=== PATIENT | male | born 1950 | race Caucasian/White ===

== ENCOUNTER 2020-11-05 13:40 | Outpatient (CLI) | payer OTHER, SELFPAY ==
--- NOTE | 2020-11-05 13:49 | CT_ITS ---
WS: [id number] CT CERVICAL SPINE TECHNIQUE: Noncontrast CT of the cervical spine with coronal and sagittal reformatted images. CLINICAL INFORMATION: NECK PAIN COMPARISON: None. DLP: 1630.[address] scans at [facility] use at least one of these dose optimization techniques: automated e xposure control; mA and/or kV adjustment per patient size (includes targeted exams where dose is matc hed to clinical indication); or iterative reconstruction. FINDINGS: Mild cervical curve convex left. Moderate spondylitic changes. Straightening of the normal cervical l ordosis. Slight retrolisthesis C4 on C5. Disc space narrowing worse at C4-C5 C5-C6 and C6-C7 with sub chondral cystic change. Normal C1-2 articulation. C2-C3: Normal. C3-C4: Disc osteophyte complex endplate ridging. Moderate to severe right and no significant left for aminal narrowing. Shallow central protrusion with mild central canal stenosis. Slight indentation on the cervical cord. Moderate facet arthropathy. C4-C5: Disc osteophyte complex with endplate ridging. Moderate to severe left and moderate right bony foraminal narrowing. Moderate facet arthropathy. Mild to moderate central canal stenosis. C5-C6: Disc osteophyte complex with endplate ridging. Mild central canal stenosis. Mild left and no s ignificant right foraminal narrowing. Moderate facet arthropathy. C6-C7: Disc osteophyte complex with endplate ridging. Mild left and no significant right foraminal na rrowing. Spinal canal is patent. Moderate facet arthropathy C7-T1: Mild osteophytic ridging. Spinal canal and foramen are patent. Fibrosis in the lung apices. Mastoid air cells are well aerated.. Visualized posterior nasopharynx: Normal. Prevertebral soft tissues: Normal. CT/CT cervical spin wo con* [id number] IMPRESSION: 1. Moderate spondylitic changes with straightening of the normal cervical lord osis. 2. Disc space narrowing worse at C4-C5, C5-C6 and C6-C7. 3. Mild central canal stenosis C3-C4 C4-C5 and C5-C6. 4. Moderate to severe bony foraminal narrowing worse at right C3-4, left C4-5, left C5-6. 5. Asymmetric facet arthropathy worse at right C3-4.
== END 2020-11-05 13:41 | disposition home or self-care (01) ==
PROVIDERS: PCP Emergency Medicine Emergency Medical Services; Visit Provider Emergency Medicine Emergency Medical Services
DX: M47.812 Spondylosis without myelopathy or radiculopathy, cervical region (principal); M48.02 Spinal stenosis, cervical region
CPT/HCPCS: 72125

== ENCOUNTER 2024-09-28 11:20 | Emergency (ER) | payer OTHER, SELFPAY ==
--- OUTSIDE RECORDS SUMMARY | 2023-11-09 05:00 | XMS_ITS ---
Author Organization [facility] Address [address] [place] [address] Care Team Providers Care Dental Sales Representative Name Role Phone [facility] Venancio ARGUELLES Primary Care Provider Un available Acklin, Zee Unavailable [phone] [place], [place] Unavailable Unavailable Ulysses Geein Unavailable [phone] REASON FOR VISIT Ulcerative Colitis Encounters Encounter Location Date Provider Diagnosis [facility] [address] [place] [address] 11/09/2023 Luda Gee Plan Of Treatment No Information Progress Notes * VALERIEKvngDOB:1950 (74 yo M)Acc No.[id number]:11/09/2023 Progress Notes Patient: Kvng Garcia Provider: Artur Gee MD :1950 A ge:73 Y S ex:Male Date:11/09/2023 Address:[address] [place] [address] [id number] Pcp:Venancio Christensen DO Subjective: * Chief Complaints: * U lcerative Colitis Billing Information: * Procedure Codes: * Electronic signature of Suzanne Gee MD on 09/28/2024 at 11:26 AM CDT Sign off status: Pending * Provider: Artur Gee MD Date: 11/09/2023 Generated for Printi ng/Faxing/eTransmitting on: 0 09/28/2024 11:26 AM CDT
--- OUTSIDE RECORDS SUMMARY | 2024-09-28 05:15 | XMS_ITS | Encounter Summary ---
Author Name [facility] Address [address] [place] [address] Care Team Providers Care Administrative Technician Name Role Phone YG BARRERA Primary Care Provider Unavailabl e JHON TRAYLOR Primary Care Provider Unavailabl e Insurance Providers: All historical and current Section Date Range: From patient's date of to the date document was created. This section includes the names of all active insurance providers for the patient. Insurance Provider Type of Coverage Plan Name Start of Policy Coverage End of Policy Coverage Group Number Member ID Insurance Provider's Telephone Number Policy Ivory's Name Patient's Relationship to Policy Ivory MEDICARE (WNR) MEDICARE (M) PART A May 06, 2011 PART A [id number] [phone] Aminata PADILLA PATIENT MEDICARE (WNR) MEDICARE (M) PART A May 06, 2011 PART A [id number] [phone] Aminata PADILLA PATIENT MEDICARE (WNR) MEDICARE (M) PART A May 06, 2011 PART A [id number] Aminata PADILLA PATIENT MEDICARE (WNR) MEDICARE (M) PART A May 06, 2011 PART A [id number] Aminata PADILLA PATIENT Selected Encounter This section includes the information on record at [place] for the Encounter. Date/Time Encounter Type Encounter Description Reason Provider Source Sep 28, 2024 10:15 AM OFF/OP EST MAY X REQ PHY/QHP PRIMARY CARE/MEDICINE ICD-10-CM M25.532 Pain in left wrist HOLLY TAPIA IHKaterina Encounter Template Text not used by [place] Assessments - Encounter Diagnoses This section includes the primary and secondary diagnoses documented for the Encounter. Date/Time Primary/Secondary Diagnosis Diagnosis Name Provider Source Sep 28, 2024 11:17 AM PRIMARY Pain in left wrist HOLLY TAPIA [facility] Plan of Treatment: Future Appointments (+ 6 months) and Future Tests (+/- 45 days) The Plan of Treatment section includes future care activities for the patient from all [place] treatmentfacilities. This section includes future appointments and future orders which are active, pending or scheduled. Active, Pending, and Scheduled Orders This section includes a listing of several types of active, pending, and scheduled orders, including clinic medications orders, diagnostic test orders, procedure orders and consult orders; where the start date of the order is 45 days before the date of the Encounter or 45 days after the date of theEncounter. The data comes from all [place] treatment facilities. Test Date/Time Test Type Test Details Facility Name Sep 28, 2024 12:00 AM Imaging - General Radiology Order WRIST,LEFT, 3 OR MORE VIEWS [facility] Sep 28, 2024 10:37 AM Laboratory - Chemi stry Order URIC ACID GREEN LI/HEP BLD/PLAS PLASMA SP [facility] Vital Signs: All taken on the encounter date This section contains inpatient and outpatient Vital Signs collected on the date of the Encounter. Date/Time Temperature Pulse Blood Pressure Respiratory Rate SP02 Pain Height Weight Body Mass Index Source Sep 28, 2024 10:40 AM 98 F 63 /min 137/96 mm[Hg] 18 /min 97 % 179.2 lb 23 [facility] Social History: Smoking Status (Most current) and Tobacco Use (All prior to encounter date) This section includes the most current, and the historical, smoking and tobacco- related health factors from the [place] facility where the Encounter took place. Current Smoking Status This section includes the most current smoking, or tobacco-related health factor, from the [place] facility where the Encounter took place. Date/Time Current Smoking Status Comment Facil ity July 18, 2023 02:00 PM VA-TOBACCO USER SOME DAYS [facility] Tobacco Use History This section includes a history of the smoking, or tobacco-related health factors, that were collected on or before the date of the Encounter. The data comes from the [place] facility where the Encounter took place. Date/Time Smoking Status/Tobacco Use Comment F acility July 18, 2023 02:00 PM VA-TOBACCO USE 30 YEARS OR MORE [facility]COURT [facility] July 18, 2023 02:00 PM VA-TOBACCO USE ADVICE [facility] July 18, 2023 02:00 PM VA-TOBACCO USE NEONATAL INTENSIVE CARE NURSE NO [facility] July 18, 2023 02:00 PM VA-TOBACCO USE MED NO [facility] July 18, 2023 02:00 PM VA-TOBACCO USER SOME DAYS [facility] Sep 12, 2018 09:07 AM VA-TOBACCO DOESNT USE WI 30 MIN WAKEUP [facility]RT [facility] Sep 12, 2018 09:07 AM VA-TOBACCO USE 30 YEARS OR MORE [facility]RT [facility] Sep 12, 2018 09:07 AM VA-TOBACCO USE ADVICE [facility] Sep 12, 2018 09:07 AM VA-TOBACCO USE NEONATAL INTENSIVE CARE NURSE NO [facility] Sep 12, 2018 09:07 AM VA-TOBACCO USE MED NO [facility] Sep 12, 2018 09:07 AM VA-TOBACCO USER EVERY DAY [facility] Apr 13, 2012 01:30 PM TOBACCO MEDS OFFER ED BUT DECLINED [facility] Apr 13, 2012 01:30 PM TOBACCO OFFERED PT MEDS (PROVIDER) [facility] Apr 13, 2012 01:[address] OP SMOKING CLINIC [facility] Mar 13, 2012 02:16 PM CURRENT TOBACCO USER [facility] Mar 13, 2012 02:[address] OP SMOKING CLINIC [facility] Jun 29, 2010 09:08 AM CURRENT TOBACCO USER [facility] Jun 29, 2010 09:08 AM TOBACCO MEDS OFFER ED BUT DECLINED [facility] Jun 29, 2010 09:08 AM TOBACCO OFFERED PT MEDS (PROVIDER) declined [facility] Jun 29, 2010 09:[address] OP SMOKING CLINIC declined [facility] Jun 03, 2009 10:39 AM CURRENT TOBACCO USER [facility] Jun 03, 2009 10:[address] OP SMOKING CLINIC [facility] Apr 17, 2009 10:51 AM TOBACCO OFFERED PT MEDS (PROVIDER) [facility] Apr 17, 2009 10:[address] OP SMOKING CLINIC [facility] Apr 17, 2009 10:51 AM TOBACCO OFFERRED P T MEDS (PROVIDER) [facility] Apr 17, 2009 10:51 AM TOBACCO OFFERRED S TOP SMOKING CLINIC [facility] 2007 02:59 PM CURRENT TOBACCO USER [facility] 2007 02:59 PM TOBACCO MEDS OFFER ED BUT DECLINED [facility] 2007 02:[address] OP SMOKING CLINIC [facility] Mar 15, 2005 09:51 AM CURRENT TOBACCO USER [facility] Sep 04, 2004 08:55 AM CURRENT NON-TOBACC O USER-HX OF USE [facility] Oct 01, 2002 03:26 PM CURRENT TOBACCO USER [facility] Apr 16, 2002 04:03 PM CURRENT TOBACCO USER [facility] Oct 30, 2001 04:27 PM CURRENT TOBACCO USER [facility] Nov 21, 2000 02:54 PM CURRENT TOBACCO USER [facility] Nov 02, 2000 04:23 PM CURRENT TOBACCO USER [facility] Advance Directives: All historical and current Section Date Range: From patient's date of to the date document was created. This section includes ALL of a patient's completed or amended [place] Advance and Rescinded Directives. The entries below indicate that a directive exists for the patient, but an actual copy is not included with this document. The data comes from all [place] facilities. Date Advance Directives Provider Source Jun 18, 2010 ADVANCE DIRECTIVE DISCUSSION JAIR MORRIS [facility] Encounter Notes: All associated encounter notes This section contains the clinical notes associated to the Encounter. Date/Time Encounter Note(s) Provider Source Sep 28, 2024 10:41 AM NURSING PROGRESS N OTE: LOCAL TITLE: NURSING NOTE PB STANDARD TITLE: NURSING PROGRESS NOTE DATE OF NOTE: SEP 28, 2024@10:41 ENTRY DATE: SEP 28, 2024@10:41:04 AUTHOR: ANNETTE TAPIA COSIGNER: URGENCY: STATUS: COMPLETED This is a 74 year old MALE with known Allergies as noted: SALSALATE, AMOXIL, FLEXERIL C/C: Left wrist pain and swelling S: Williamson stated that on Tuesday he was moving boxes and felt a pop in his left wrist and then the pain and swelling occurred. stated that he has not been treating the pain or swelling with anything. On the following Active Medications: Active Outpatient Medications (including Supplies): Active Non-VA Medications Status === 1) Non-VA NIACIN (SLO-NIACIN) 500MG TAB,SA 500MG BY MOUTH AT ACTIVE BEDTIME O: Williamson ambulated into the clinic without assistance. Steady gait. Alert and oriented x4. Unlabored breathing. Left wrist and left hand edema noted and warmth noted. A/P: Reviewed with Provider. Provider order a left Xray and a uric acid. Provider reviewed Xray and recommended for Williamson to report to the ER for further evaluation and treatment. voiced understanding and agreed to plan of care. Williamson refused EMS. advised he will drive to [facility]. ER contact and report given to ROQUE sAtorga at [facility]. escorted to the lobby in stable condition. ED consult placed and held for signature. RTC: as needed /matt/ Annette Tapia RN [facility], JAminataP [facility] Signed: 09/28/2024 11:15 Receipt Acknowledged By: * AWAITING SIGNATURE * AKILAH CURTIS III, JEANNIE RENEE [facility]
--- OUTSIDE RECORDS SUMMARY | 2024-09-28 06:25 | XMS_ITS | Continuity of Care Document ---
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 It does not include entries that were removed or entered in error. 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 [facility] Cervical radiculopathy Active Condition [place] [facility] Cervicalgia Active Condition [facility] Chronic hepatitis C Active Condition [facility] [place] [facility] Chronic Low Back Pain (ICD-9-CM 724.2) Active Condition [place] [facility] Chronic tension-type headache (SNOMED CT 417372046) Active Condition [facility] Depressive Disorder NOS * (ICD-9-CM 311./300.4) Active Condition [place] [facility] Diverticular disease [facility] Elevated Liver Function Tests Active Condition [facility] Exposure to potentially hazardous chemical Active Condition [place] [facility] Exposure to potentially hazardous substance ([facility] 134843777382243) Active Condition July Entered By: ANA DENNIS Comment: Entered automatically through MARIANO Problem List documentation program [facility] Hepatitis C * (ICD-9-CM 070.51) Active Condition [place] [facility] Hyperlipidemia (SNOMED CT 58666804) Active Condition [facility] Hypertension (SNOMED CT 78186080) Active Condition [facility] Hypertriglyceridemia Active Condition [place] [facility] Migraine, unspecified, without mention of Intractable Migraine without mention o Active Condition [place] [facility] Opioid Dependence Active Condition [place] [facility] Osteoarthritis * (ICD-9-CM 715.90) Active Condition [place] [facility] Overweight Active Condition [facility] Shoulder pain Active Condition [facility] Tobacco user Active Condition [facility] Ulcerative Colitis ([facility] 10013354) Active Condition [place] [facility] Unspecified gastritis and gastroduodenitis, without mention of hemorrhage (ICD-9 Active Condition [place] [facility] ABDOM PAIN, L L QUADR Inactive Condition 10/02/2018 [place] [facility] Contact with or Exposure to other Viral Diseases (ICD-9-CM V01.7) Inactive Condition 07/19/2023 [place] [facility] Diarrhea * (ICD-9-CM 787.91) Inactive Condition 10/04/2018 [place] [facility] Diarrhea of presumed infectious origin (ICD-9-CM 009.3) Inactive Condition 10/04/2018 [place] [facility] DIZZINESS AND GIDDINESS Inactive Condition 07/19/2023 [place] [facility] Laboratory Examination Ordered as part of a Routine General Medical Examination Inactive Condition 10/02/2018 [facility] Laboratory Examination, unspecified (ICD-9-CM V72.60) Inactive Condition 10/02/2018 [facility] Muscle weakness Inactive Condition 09/05/2017 [place] [facility] Myalgia and myositis (ICD-9-CM 729.1) Inactive Condition 07/19/2023 [place] [facility] Numbness of hand (SNOMED CT 739222959) Inactive Condition 10/02/2018 [facility] Other Malaise and Fatigue (ICD-9-CM 780.79) Inactive Condition 07/19/2023 [place] [facility] Pain of right shoulder joint Inactive Condition 09/05/2017 [facility] Routine General Medical Examination at a Health Care Facility * Inactive Condition 10/02/2018 [facility] Screening for Lipoid disorders Inactive Condition 10/02/2018 [facility] Screening for Malignant Neoplasm of the Prostate Inactive Condition 10/02/2018 [facility] Screening for Thyroid Disorders Inactive Condition 10/02/2018 [facility] Tick-borne fever (ICD-9-CM 066.1) Inactive Condition 07/19/2023 [place] [facility] Tobacco Use Disorder, Continuous (ICD-9-CM 305.1) Inactive Condition 07/19/2023 [place] [facility] VACCIN FOR INFLUENZA Inactive Condition 10/02/2018 [place] [facility] Diagnosis: ICD-10-CM M25.532 Pain in left wrist Active Diagnosis [facility] Diagnosis: ICD-10-CM K51.90 Ulcerative colitis, unspecified, without complications Active Diagnosis [facility] Medications Combined list of outpatient medications from Department [facility] and [facility] facilities.Medications provided include 1) outpatient medications from the last 15 months, and 2) patient-reported medications. Medication Details Route Status Patient Instructions Prescription Expires Prescription Number Last Dispense Date Ordering Provider Order Date Order Qty Source AMLODIPINE BESYLATE 10MG TAB TAKE ONE TABLET BY MOUTH ONCE A DAY FOR HIGH BLOOD PRESSURE ORAL 07/18/2024 [id number] 5 LEVAR RODRIGUEZ 2023 90 [facility] METOPROLOL TARTRATE 100MG TAB TAKE ONE TABLET BY MOUTH TWICE A DAY FOR HIGH BLOOD PRESSURE TAKE WITH OR IMMEDIAT STEFANIE FOLLOWIN G FOOD. ORAL 07/18/2024 [id number] 5 LEVAR RODRIGUEZ 2023 180 [facility] NIACIN (SLO-NIACIN ) 500MG TAB,SA TAKE ONE TABLET BY MOUTH AT BEDTIME ORAL ACTIVE MICHEL SUAREZ 2020 [facility] Allergies, Adverse Reactions, Alerts Combined list of allergies from [facility] and [facility] facilities. It does not include entries that were removed or entered in error. Substance Category Reaction Severity Reaction type Status Date Reported Comments Source AMOXIL Propensity to adverse reactions to drug (finding) Nausea and vomiting active 0 [facility] FLEXERIL Propensity to adverse reactions to drug (finding) Chest pain active 1 [facility] SALSALATE Propensity to adverse reactions to drug (finding) Finding of vomiting active 3 [facility] Immunizations Combined list of available immunizations from the Department of [facility] and [facility] facilities. Immunization Series Date Given Administered By Site Reaction Lot Number CVX Code Drug Celebrity Manager Status Comments Source TDAP (HISTORICAL) 2011 115 complet ed [facility], VISN 15 INFLUENZA, UNSPECIFIED FORMULATION 2007 88 complet ed [facility] HEP A-HEP B 2006 PLACIDO COUGHLIN 104 complet ed [facility] INFLUENZA (HISTORICAL) 2003 88 complet ed [facility] Results Combined list of recent chemistry, hematology and other laboratory results from Department of Defense and [facility] Affairs, ranging from 15 months to all on record, depending upon the facility. Order Name Results Value Reference Range Date Interpretation Specimen Comments Source VITAMIN D, 25-HYDROXY 25-HYDROXYV ITAMIN D3 [MASS/VOLUM E] IN SERUM OR PLASMA 21.7 ng/mL 30 - 96 07/17 L Specimen Type: SERUM No comment entered. Ordering Provider: LEVAR RODRIGUEZ Report Released Date/Time : July 15, 2023 04:13 PM Reporting Lab: [place] [facility] [address] [place] [address] Performin g Lab: [place] [facility] [address] [place] [address] [facility] TSH (MA-PB) THYROTROPIN [UNITS/VOLU ME] IN SERUM OR PLASMA 2.045 u[IU]/mL 0.47 - 5 07/17 Specimen Type: SERUM No comment entered. Ordering Provider: LEVAR RODRIGUEZ Report Released Date/Time : July 15, 2023 04:13 PM Reporting Lab: [place] [facility] [address] [place] [address] Performin g Lab: [place] [facility] [address] [place] [address] [facility] HGA1C HEMOGLOBIN A1C/HEMOGLO BIN.TOTAL IN BLOOD 6.0 4.0 - 6.0 07/17 Specimen Type: BLOOD No comment entered. Ordering Provider: LEVAR RODRIGUEZ Report Released Date/Time : July 15, 2023 04:13 PM Reporting Lab: [place] [facility] [address] [place] [address] Performin g Lab: [place] [facility] [address] [place] [address] [facility] CHOLESTERO L PANEL (PB) CHOLESTEROL [MASS/VOLUM E] IN SERUM OR PLASMA 202 mg/dL 0 - 200 07/17 H Specimen Type: PLASMA No comment entered. Ordering Provider: LEVAR RODRIGUEZ Report Released Date/Time : July 15, 2023 04:13 PM Reporting Lab: [place] [facility] [address] [place] [address] Performin g Lab: [place] [facility] [address] [place] [address] [facility] CHOLESTERO L PANEL (PB) TRIGLYCERID E [MASS/VOLUM E] IN SERUM OR PLASMA 152 mg/dL 0 - 150 07/17 H Specimen Type: PLASMA No comment entered. Ordering Provider: LEVAR RODRIGUEZ Report Released Date/Time : July 15, 2023 04:13 PM Reporting Lab: [place] [facility] [address] [place] [address] Performin g Lab: [place] [facility] [address] [place] [address] [facility] CHOLESTERO L PANEL (PB) CHOLESTEROL IN LDL [MASS/VOLUM E] IN SERUM OR PLASMA BY CALCULATION 132.1 mg/dL 07/17 Specimen Type: PLASMA No comment entered. Ordering Provider: LEVAR RODRIGUEZ Report Released Date/Time : July 15, 2023 04:13 PM Reporting Lab: [place] [facility] [address] [place] [address] Performin g Lab: [place] [facility] [address] [place] [address] [facility] CHOLESTERO L PANEL (PB) CHOLESTEROL IN HDL [MASS/VOLUM E] IN SERUM OR PLASMA 39.5 mg/dL 40 07/17 L Specimen Type: PLASMA No comment entered. Ordering Provider: LEVAR RODRIGUEZ Report Released Date/Time : July 15, 2023 04:13 PM Reporting Lab: [place] [facility] [address] [place] [address] Performin g Lab: [place] [facility] [address] [place] [address] [place] [place] [facility] CHOLESTERO L PANEL (PB) CHOLESTEROL IN HDL/CHOLEST TO.TOTAL [MASS RATIO] IN SERUM OR PLASMA 19.6 25 07/17 Specimen Type: PLASMA No comment entered. Ordering Provider: LEVAR RODRIGUEZ Report Released Date/Time : July 15, 2023 04:13 PM Reporting Lab: [place] [facility] [address] [place] [address] Performin g Lab: [place] [facility] [address] [place] [address] [facility] COMPREHENS ANSHU METABOLIC PANEL CREATININE [MASS/VOLUM E] IN SERUM OR PLASMA 1.25 mg/dL 0.7 - 1.3 07/17 Specimen Type: PLASMA No comment entered. Ordering Provider: LEVAR RODRIGUEZ Report Released Date/Time : July 15, 2023 04:13 PM Reporting Lab: [place] [facility] [address] [place] [address] Performin g Lab: [place] [facility] [address] [place] [address] [facility] COMPREHENS ANSHU METABOLIC PANEL UREA NITROGEN [MASS/VOLUM E] IN SERUM OR PLASMA 23 mg/dL 9 - 25 07/17 Specimen Type: PLASMA No comment entered. Ordering Provider: LEVAR RODRIGUEZ Report Released Date/Time : July 15, 2023 04:13 PM Reporting Lab: [place] [facility] [address] [place] [address] Performin g Lab: [place] [facility] [address] [place] [address] [facility] COMPREHENS ANSHU METABOLIC PANEL GLUCOSE [MASS/VOLUM E] IN SERUM OR PLASMA 118 mg/dL 72 - 99 07/17 H Specimen Type: PLASMA No comment entered. Ordering Provider: LEVAR RODRIGUEZ Report Released Date/Time : July 15, 2023 04:13 PM Reporting Lab: [place] [facility] [address] [place] [address] Performin g Lab: [place] [facility] [address] [place] [address] [facility] COMPREHENS ANSHU METABOLIC PANEL SODIUM [MOLES/VOLU ME] IN SERUM OR PLASMA 136 meq/L 136 - 145 07/17 Specimen Type: PLASMA No comment entered. Ordering Provider: LEVAR RODRIGUEZ Report Released Date/Time : July 15, 2023 04:13 PM Reporting Lab: [place] [facility] [address] [place] [address] Performin g Lab: [place] [facility] [address] [place] [address] [facility] COMPREHENS ANSHU METABOLIC PANEL POTASSIUM [MOLES/VOLU ME] IN SERUM OR PLASMA 5.0 meq/L 3.5 - 5 07/17 Specimen Type: PLASMA No comment entered. Ordering Provider: LEVAR RODRIGUEZ Report Released Date/Time : July 15, 2023 04:13 PM Reporting Lab: [place] [facility] [address] [place] [address] Performin g Lab: [place] [facility] [address] [place] [address] [facility] COMPREHENS ANSHU METABOLIC PANEL CHLORIDE [MOLES/VOLU ME] IN SERUM OR PLASMA 102 meq/L 98 - 107 07/17 Specimen Type: PLASMA No comment entered. Ordering Provider: LEVAR RODRIGUEZ Report Released Date/Time : July 15, 2023 04:13 PM Reporting Lab: [place] [facility] [address] [place] [address] Performin g Lab: [place] [facility] [address] [place] [address] [facility] COMPREHENS ANSHU METABOLIC PANEL CARBON DIOXIDE, TOTAL [MOLES/VOLU ME] IN SERUM OR PLASMA 26 meq/L 22 - 31 07/17 Specimen Type: PLASMA No comment entered. Ordering Provider: LEVAR RODRIGUEZ Report Released Date/Time : July 15, 2023 04:13 PM Reporting Lab: [place] [facility] [address] [place] [address] Performin g Lab: [place] [facility] [address] [place] [address] [facility] COMPREHENS ANSHU METABOLIC PANEL CALCIUM [MASS/VOLUM E] IN SERUM OR PLASMA 9.3 mg/dL 8.4 - 10.4 07/17 Specimen Type: PLASMA No comment entered. Ordering Provider: LEVAR RODRIGUEZ Report Released Date/Time : July 15, 2023 04:13 PM Reporting Lab: [place] [facility] [address] [place] [address] Performin g Lab: [place] [facility] [address] [place] [address] [facility] COMPREHENS ANSHU METABOLIC PANEL PROTEIN [MASS/VOLUM E] IN SERUM OR PLASMA 8.3 g/dL 6 - 8.6 07/17 Specimen Type: PLASMA No comment entered. Ordering Provider: LEVAR RODRIGUEZ Report Released Date/Time : July 15, 2023 04:13 PM Reporting Lab: [place] [facility] [address] [place] [address] Performin g Lab: [place] [facility] [address] [place] [address] [facility] COMPREHENS ANSHU METABOLIC PANEL ALBUMIN [MASS/VOLUM E] IN SERUM OR PLASMA 4.2 g/dL 3.4 - 5 07/17 Specimen Type: PLASMA No comment entered. Ordering Provider: LEVAR RODRIGUEZ Report Released Date/Time : July 15, 2023 04:13 PM Reporting Lab: [place] [facility] [address] [place] [address] Performin g Lab: [place] [facility] [address] [place] [address] [facility] COMPREHENS ANSHU METABOLIC PANEL BILIRUBIN.T OTAL [MASS/VOLUM E] IN SERUM OR PLASMA 0.3 mg/dL 0.2 - 1.2 07/17 Specimen Type: PLASMA No comment entered. Ordering Provider: LEVAR RODRIGUEZ Report Released Date/Time : July 15, 2023 04:13 PM Reporting Lab: [place] [facility] [address] [place] [address] Performin g Lab: [place] [facility] [address] [place] [address] [facility] COMPREHENS ANSHU METABOLIC PANEL ALKALINE PHOSPHATASE [ENZYMATIC ACTIVITY/VO LUME] IN SERUM OR PLASMA 49 U/L 40 - 150 07/17 Specimen Type: PLASMA No comment entered. Ordering Provider: LEVAR RODRIGUEZ Report Released Date/Time : July 15, 2023 04:13 PM Reporting Lab: [place] [facility] [address] [place] [address] Performin g Lab: [place] [facility] [address] [place] [address] [facility] COMPREHENS ANSHU METABOLIC PANEL ASPARTATE AMINOTRANSF ERASE [ENZYMATIC ACTIVITY/VO LUME] IN SERUM OR PLASMA 36 U/L 5 - 34 07/17 H Specimen Type: PLASMA No comment entered. Ordering Provider: LEVAR RODRIGUEZ Report Released Date/Time : July 15, 2023 04:13 PM Reporting Lab: [place] [facility] [address] [place] [address] Performin g Lab: [place] [facility] [address] [place] [address] [facility] COMPREHENS ANSHU METABOLIC PANEL ALANINE AMINOTRANSF ERASE [ENZYMATIC ACTIVITY/VO LUME] IN SERUM OR PLASMA 34 U/L 8 - 40 07/17 Specimen Type: PLASMA No comment entered. Ordering Provider: LEVAR RODRIGUEZ Report Released Date/Time : July 15, 2023 04:13 PM Reporting Lab: [place] [facility] [address] [place] [address] Performin g Lab: [place] [facility] [address] [place] [address] [facility] COMPREHENS ANSHU METABOLIC PANEL GLOMERULAR FILTRATION RATE/1.73 SQ M.PREDICTED [VOLUME RATE/AREA] IN SERUM, PLASMA OR BLOOD BY CREATININE- BASED FORMULA (CKD-EPI 2020) 61 07/17 Specimen Type: PLASMA No comment entered. Ordering Provider: LEVAR RODRIGUEZ Report Released Date/Time : July 15, 2023 04:13 PM Reporting Lab: [place] [facility] [address] [place] [address] Performin g Lab: [place] [facility] [address] [place] [address] [facility] URINALYSIS (STL-PB) COLOR OF URINE Yellow 07/17 Specimen Type: URINE No comment entered. Ordering Provider: LEVAR RODRIGUEZ Report Released Date/Time : July 15, 2023 04:13 PM Reporting Lab: [place] [facility] [address] [place] [address] Performin g Lab: [place] [facility] [address] [place] [address] [facility] URINALYSIS (STL-PB) BILIRUBIN.T OTAL [PRESENCE] IN URINE BY TEST STRIP NEGATIVEm g/dL 07/17 Specimen Type: URINE No comment entered. Ordering Provider: LEVAR RODRIGUEZ Report Released Date/Time : July 15, 2023 04:13 PM Reporting Lab: [place] [facility] [address] [place] [address] Performin g Lab: [place] [facility] [address] [place] [address] [facility] URINALYSIS (STL-PB) PH OF URINE BY TEST STRIP 6.5 5.0 - 8.0 07/17 Specimen Type: URINE No comment entered. Ordering Provider: LEVAR RODRIGUEZ Report Released Date/Time : July 15, 2023 04:13 PM Reporting Lab: [place] [facility] [address] [place] [address] Performin g Lab: [place] [facility] [address] [place] [address] [facility] URINALYSIS (STL-PB) LEUKOCYTES [#/AREA] IN URINE SEDIMENT BY MICROSCOPY HIGH POWER FIELD 4 /[HPF] 0 - 5 07/17 Specimen Type: URINE No comment entered. Ordering Provider: LEVAR RODRIGUEZ Report Released Date/Time : July 15, 2023 04:13 PM Reporting Lab: [place] [facility] [address] [place] [address] Performin g Lab: [place] [facility] [address] [place] [address] [facility] URINALYSIS (STL-PB) ERYTHROCYTE S [#/VOLUME] IN URINE SEDIMENT BY MICROSCOPY HIGH POWER FIELD 15 /[HPF] 0 - 5 07/17 H Specimen Type: URINE No comment entered. Ordering Provider: LEVAR RODRIGUEZ Report Released Date/Time : July 15, 2023 04:13 PM Reporting Lab: [place] [facility] [address] [place] [address] Performin g Lab: [place] [facility] [address] [place] [address] [facility] URINALYSIS (STL-PB) APPEARANCE OF URINE CLEAR 07/17 Specimen Type: URINE No comment entered. Ordering Provider: LEVAR RODRIGUEZ Report Released Date/Time : July 15, 2023 04:13 PM Reporting Lab: [place] [facility] [address] [place] [address] Performin g Lab: [place] [facility] [address] [place] [address] [facility] URINALYSIS (STL-PB) NITRITE [PRESENCE] IN URINE BY TEST STRIP NEGATIVEm g/dL 07/17 Specimen Type: URINE No comment entered. Ordering Provider: LEVAR RODRIGUEZ Report Released Date/Time : July 15, 2023 04:13 PM Reporting Lab: [place] [facility] [address] [place] [address] Performin g Lab: [place] [facility] [address] [place] [address] [facility] URINALYSIS (STL-PB) MUCUS [PRESENCE] IN URINE SEDIMENT BY LIGHT MICROSCOPY RARE/[LPF ] 07/17 Specimen Type: URINE No comment entered. Ordering Provider: LEVAR RODRIGUEZ Report Released Date/Time : July 15, 2023 04:13 PM Reporting Lab: [place] [facility] [address] [place] [address] Performin g Lab: [place] [facility] [address] [place] [address] [facility] URINALYSIS (STL-PB) CALCIUM OXALATE CRYSTALS [PRESENCE] IN URINE SEDIMENT BY LIGHT MICROSCOPY FEW/[HPF] 07/17 H Specimen Type: URINE No comment entered. Ordering Provider: LEVAR RODRIGUEZ Report Released Date/Time : July 15, 2023 04:13 PM Reporting Lab: [place] [facility] [address] [place] [address] Performin g Lab: [place] [facility] [address] [place] [address] [facility] URINALYSIS (STL-PB) GLUCOSE [MASS/VOLUM E] IN URINE BY TEST STRIP NORMALmg/ dL 07/17 Specimen Type: URINE No comment entered. Ordering Provider: LEVAR RODRIGUEZ Report Released Date/Time : July 15, 2023 04:13 PM Reporting Lab: [place] [facility] [address] [place] [address] Performin g Lab: [place] [facility] [address] [place] [address] [facility] URINALYSIS ([facility]) PROTEIN [MASS/VOLUM E] IN URINE BY TEST STRIP 50 mg/dL - 20 07/17 H Specimen Type: URINE No comment entered. Ordering Provider: LEVAR RODRIGUEZ Report Released Date/Time : July 15, 2023 04:13 PM Reporting Lab: [place] [facility] [address] [place] [address] Performin g Lab: [place] [facility] [address] [place] [address] [facility] URINALYSIS ([facility]) URN.UROBILI NOGEN NORMALmg/ dL 07/17 Specimen Type: URINE No comment entered. Ordering Provider: LEVAR RODRIGUEZ Report Released Date/Time : July 15, 2023 04:13 PM Reporting Lab: [place] [facility] [address] [place] [address] Performin g Lab: [place] [facility] [address] [place] [address] [facility] URINALYSIS ([facility]) HEMOGLOBIN [MASS/VOLUM E] IN URINE BY TEST STRIP 2+mg/dL 07/17 H Specimen Type: URINE No comment entered. Ordering Provider: LEVAR RODRIGUEZ Report Released Date/Time : July 15, 2023 04:13 PM Reporting Lab: [place] [facility] [address] [place] [address] Performin g Lab: [place] [facility] [address] [place] [address] [facility] URINALYSIS (STL-PB) KETONES [MASS/VOLUM E] IN URINE BY TEST STRIP NEGATIVEm g/dL 07/17 Specimen Type: URINE No comment entered. Ordering Provider: LEVAR RODRIGUEZ Report Released Date/Time : July 15, 2023 04:13 PM Reporting Lab: [place] [facility] [address] [place] [address] Performin g Lab: [place] [facility] [address] [place] [address] [facility] URINALYSIS (STL-PB) URN.LEUK.ES T. NEGATIVE 07/17 Specimen Type: URINE No comment entered. Ordering Provider: LEVAR RODRIGUEZ Report Released Date/Time : July 15, 2023 04:13 PM Reporting Lab: [place] [facility] [address] [place] [address] Performin g Lab: [place] [facility] [address] [place] [address] [facility] URINALYSIS (STL-PB) SPECIFIC GRAVITY OF URINE 1.024 1.005 - 1.029 07/17 Specimen Type: URINE No comment entered. Ordering Provider: LEVAR RODRIGUEZ Report Released Date/Time : July 15, 2023 04:13 PM Reporting Lab: [place] [facility] [address] [place] [address] 8 Performin g Lab: [place] [facility] [address] [place] [address] [facility] CBC LEUKOCYTES [#/VOLUME] IN BLOOD BY AUTOMATED COUNT 8.0 10*3/uL 3.6 - 11.2 07/17 Specimen Type: BLOOD No comment entered. Ordering Provider: LEVAR RODRIGUEZ Report Released Date/Time : July 15, 2023 04:13 PM Reporting Lab: [place] [facility] [address] [place] [address] 8 Performin g Lab: [place] [facility] [address] [place] [address] [facility] CBC ERYTHROCYTE S [#/VOLUME] IN BLOOD BY AUTOMATED COUNT 4.87 10*6/uL 4.10 - 5.70 07/17 Specimen Type: BLOOD No comment entered. Ordering Provider: LEVAR RODRIGUEZ Report Released Date/Time : July 15, 2023 04:13 PM Reporting Lab: [place] [facility] [address] [place] [address] Performin g Lab: [place] [facility] [address] [place] [address] [facility] CBC HEMOGLOBIN [MASS/VOLUM E] IN BLOOD 16.3 g/dL 13.1 - 16.8 07/17 Specimen Type: BLOOD No comment entered. Ordering Provider: LEVAR RODRIGUEZ Report Released Date/Time : July 15, 2023 04:13 PM Reporting Lab: [place] [facility] [address] [place] [address] 8 Performin g Lab: [place] [facility] [address] [place] [address] [facility] CBC HEMATOCRIT [VOLUME FRACTION] OF BLOOD 47.5 38.2 - 48.4 07/17 Specimen Type: BLOOD No comment entered. Ordering Provider: LEVAR RODRIGUEZ Report Released Date/Time : July 15, 2023 04:13 PM Reporting Lab: [place] [facility] [address] [place] [address] Performin g Lab: [place] [facility] [address] [place] [address] [facility] CBC MCV [ENTITIC VOLUME] BY AUTOMATED COUNT 97.5 fL 80.0 - 100.0 07/17 Specimen Type: BLOOD No comment entered. Ordering Provider: LEVAR RODRIGUEZ Report Released Date/Time : July 15, 2023 04:13 PM Reporting Lab: [place] [facility] [address] [place] [address] Performin g Lab: [place] [facility] [address] [place] [address] [facility] CBC MCH [ENTITIC MASS] BY AUTOMATED COUNT 33.5 pg 27.0 - 34.0 07/17 Specimen Type: BLOOD No comment entered. Ordering Provider: LEVAR RODRIGUEZ Report Released Date/Time : July 15, 2023 04:13 PM Reporting Lab: [place] [facility] [address] [place] [address] Performin g Lab: [place] [facility] [address] [place] [address] [facility] CBC MCHC [MASS/VOLUM E] BY AUTOMATED COUNT 34.3 g/dL 33.0 - 36.0 07/17 Specimen Type: BLOOD No comment entered. Ordering Provider: LEVAR RODRIGUEZ Report Released Date/Time : July 15, 2023 04:13 PM Reporting Lab: [place] [facility] [address] [place] [address] Performin g Lab: [place] [facility] [address] [place] [address] [facility] CBC PLATELETS [#/VOLUME] IN BLOOD BY AUTOMATED COUNT 208 10*3/uL 150 - 400 07/17 Specimen Type: BLOOD No comment entered. Ordering Provider: LEVAR RODRIGUEZ Report Released Date/Time : July 15, 2023 04:13 PM Reporting Lab: [place] [facility] [address] [place] [address] Performin g Lab: [place] [facility] [address] [place] [address] [facility] CBC PLATELET MEAN VOLUME [ENTITIC VOLUME] IN BLOOD BY AUTOMATED COUNT 10.5 fL 7.5 - 11.2 07/17 Specimen Type: BLOOD No comment entered. Ordering Provider: LEVAR RODRIGUEZ Report Released Date/Time : July 15, 2023 04:13 PM Reporting Lab: [place] [facility] [address] [place] [address] Performin g Lab: [place] [facility] [address] [place] [address] [facility] CBC ERYTHROCYTE DISTRIBUTIO N WIDTH [RATIO] BY AUTOMATED COUNT 13.4 11.8 - 15.1 07/17 Specimen Type: BLOOD No comment entered. Ordering Provider: LEVAR RODRIGUEZ Report Released Date/Time : July 15, 2023 04:13 PM Reporting Lab: [place] [facility] [address] [place] [address] Performin g Lab: [place] [facility] [address] [place] [address] [facility] CBC LYMPHOCYTES /100 LEUKOCYTES IN BLOOD BY AUTOMATED COUNT 24.3 07/17 Specimen Type: BLOOD No comment entered. Ordering Provider: LEVAR RODRIGUEZ Report Released Date/Time : July 15, 2023 04:13 PM Reporting Lab: [place] [facility] [address] [place] [address] Performin g Lab: [place] [facility] [address] [place] [address] [facility] CBC MONOCYTES/1 00 LEUKOCYTES IN BLOOD BY AUTOMATED COUNT 6.8 07/17 Specimen Type: BLOOD No comment entered. Ordering Provider: LEVAR RODRIGUEZ Report Released Date/Time : July 15, 2023 04:13 PM Reporting Lab: [place] [facility] [address] [place] [address] Performin g Lab: [place] [facility] [address] [place] [address] [facility] CBC NEUTROPHILS /100 LEUKOCYTES IN BLOOD BY AUTOMATED COUNT 66.5 07/17 Specimen Type: BLOOD No comment entered. Ordering Provider: LEVAR RODRIGUEZ Report Released Date/Time : July 15, 2023 04:13 PM Reporting Lab: [place] [facility] [address] [place] [address] 8 Performin g Lab: [place] [facility] [address] [place] [address] [facility] CBC EOSINOPHILS /100 LEUKOCYTES IN BLOOD BY AUTOMATED COUNT 0.4 07/17 Specimen Type: BLOOD No comment entered. Ordering Provider: LEVAR RODRIGUEZ Report Released Date/Time : July 15, 2023 04:13 PM Reporting Lab: [place] [facility] [address] [place] [address] Performin g Lab: [place] [facility] [address] [place] [address] [facility] CBC BASOPHILS/1 00 LEUKOCYTES IN BLOOD BY AUTOMATED COUNT 1.1 07/17 Specimen Type: BLOOD No comment entered. Ordering Provider: LEVAR RODRIGUEZ Report Released Date/Time : July 15, 2023 04:13 PM Reporting Lab: [place] [facility] [address] [place] [address] Performin g Lab: [place] [facility] [address] [place] [address] [facility] CBC LYMPHOCYTES [#/VOLUME] IN BLOOD BY AUTOMATED COUNT 1.95 10*3/uL 0.77 - 4.50 07/17 Specimen Type: BLOOD No comment entered. Ordering Provider: LEVAR RODRIGUEZ Report Released Date/Time : July 15, 2023 04:13 PM Reporting Lab: [place] [facility] [address] [place] [address] Performin g Lab: [place] [facility] [address] [place] [address] [facility] CBC MONOCYTES [#/VOLUME] IN BLOOD BY AUTOMATED COUNT 0.55 10*3/uL 0.19 - 0.8 07/17 Specimen Type: BLOOD No comment entered. Ordering Provider: LEVAR RODRIGUEZ Report Released Date/Time : July 15, 2023 04:13 PM Reporting Lab: [place] [facility] [address] [place] [address] Performin g Lab: [place] [facility] [address] [place] [address] [facility] CBC NEUTROPHILS [#/VOLUME] IN BLOOD BY AUTOMATED COUNT 5.34 10*3/uL 2.10 - 8.00 07/17 Specimen Type: BLOOD No comment entered. Ordering Provider: LEVAR RODRIGUEZ Report Released Date/Time : July 15, 2023 04:13 PM Reporting Lab: [place] [facility] [address] [place] [address] Performin g Lab: [place] [facility] [address] [place] [address] [facility] CBC EOSINOPHILS [#/VOLUME] IN BLOOD BY AUTOMATED COUNT 0.03 10*3/uL 0.00 - 0.60 07/17 Specimen Type: BLOOD No comment entered. Ordering Provider: LEVAR RODRIGUEZ Report Released Date/Time : July 15, 2023 04:13 PM Reporting Lab: [place] [facility] [address] [place] [address] Performin g Lab: [place] [facility] [address] [place] [address] [facility] CBC BASOPHILS [#/VOLUME] IN BLOOD BY AUTOMATED COUNT 0.09 10*3/uL 0.00 - 0.20 07/17 Specimen Type: BLOOD No comment entered. Ordering Provider: LEVAR RODRIGUEZ Report Released Date/Time : July 15, 2023 04:13 PM Reporting Lab: [place] [facility] [address] [place] [address] Performin g Lab: [place] [facility] [address] [place] [address] [facility] CBC IMMATURE GRANULOCYTE S/100 LEUKOCYTES IN BLOOD BY AUTOMATED COUNT 0.9 07/17 Specimen Type: BLOOD No comment entered. Ordering Provider: LEVAR RODRIGUEZ Report Released Date/Time : July 15, 2023 04:13 PM Reporting Lab: [place] [facility] [address] [place] [address] Performin g Lab: [place] [facility] [address] [place] [address] [facility] CBC IMMATURE GRANULOCYTE S [#/VOLUME] IN BLOOD BY AUTOMATED COUNT 0.07 10*3/uL 0.00 - 0.05 07/17 H Specimen Type: BLOOD No comment entered. Ordering Provider: LEVAR RODRIGUEZ Report Released Date/Time : July 15, 2023 04:13 PM Reporting Lab: [place] [facility] [address] [place] [address] Performin g Lab: [place] [facility] [address] [place] [address] [facility] FREE T4 (MA-PB) THYROXINE (T4) FREE [MASS/VOLUM E] IN SERUM OR PLASMA 1.22 ng/dL 0.7 - 1.48 07/17 Specimen Type: SERUM No comment entered. Ordering Provider: LEVAR RODRIGUEZ Report Released Date/Time : July 15, 2023 04:13 PM Reporting Lab: [place] [facility] [address] [place] [address] Performin g Lab: [place] [facility] [address] [place] [address] [facility] Vital Signs Combined list of inpatient and outpatient Vital Signs from Department of [facility] and [facility], ranging from 12 months to all on record, depending upon the facility. Vital Sign Value Date Comments Source SYSTOLIC BLOOD PRESSURE 137 09/28/2024 10:40:29 [facility] DIASTOLIC BLOOD PRESSURE 96 09/28/2024 10:40:29 [facility] PULSE OXIMETRY 97 % 09/28/2024 10:40:29 [facility] WEIGHT 179.2 09/28/2024 10:40:29 [facility] BMI 23 kg/m2 09/28/2024 10:40:29 [facility] TEMPERATURE 98 09/28/2024 10:40:29 [facility] PULSE 63 09/28/2024 10:40:29 [facility] RESPIRATION 18 09/28/2024 10:40:29 [facility] Encounters Combined list of: 1) Encounters from [facility] facilities going backup to the last 18 months, not all [place] inpatient encounters are included; 2) Encounters from the Department of [facility] facilities going backup to 280 months. Location Location Details Encounter Type Encounter Number Reason For Visit Attending Provider ADM Date DC Date Status Disposition Source [facility] Outpatient Encounter [id number] 06/29 [facility] OFF[facility] O/P EST MOD 30 MIN [id number] Diagnos is: ICD-10- CM K51.90 Ulcerat anshu colitis , unspeci fied, without complic ations Marley RODRIGUEZ 07/17 [facility] Outpatient Encounter [id number] Marley RODRIGUEZ 07/18 [facility] Outpatient Encounter [id number] 07/19 [facility] Outpatient Encounter [id number] 09/05 [facility] N [facility] Outpatient Encounter [id number] 07/18 [facility] N [facility] OFF/OP EST MAY X REQ PHY/QHP [id number] Diagnos is: ICD-10- CM M25.532 Pain in left wrist Aminata TAPIA 09/28 [facility] Social History Combined list of available smoking, tobacco, and other social history from [facility] and [facility] facilities. Social History Type Response Date Comment Sourc e Tobacco smoking status NHIS VA-TOBACCO USER SOME DAYS 07/18/2023 [facility] History of tobacco use VA-TOBACCO DOESNT USE WI 30 MIN WAKEUP 07/18/2023 [facility] History of tobacco use VA-TOBACCO USE MED NO 09/12/2018 [facility] History of tobacco use TOBACCO USER OFFERED MEDS 03/31/2017 [facility] History of tobacco use CO-TOBACCO USE PAST 12 MO 09/12/2015 [facility] History of tobacco use CO-TOBACCO USE PAST 12 MO 04/03/2014 [facility] History of tobacco use CO-TOBACCO USE PAST 12 MO 12/19/2012 [facility] History of tobacco use TOBACCO OFFERED PT MEDS (PROVIDER) 04/13/2012 [facility] History of tobacco use [facility]AC[facility]ED [facility] 03/13/2012 [facility] History of tobacco use TOBACCO OFFERED PT MEDS (PROVIDER) 06/29/2010 declined [facility] History of tobacco use TOBACCO OFFERED [facility] 06/03/2009 [facility] History of tobacco use TOBACCO OFFERED PT MEDS (PROVIDER) 04/17/2009 [facility] History of tobacco use TOBACCO OFFERRED STOP [facility]MOKING CLINIC 01/22/2008 [facility] History of tobacco use CURRENT TOBACCO USER 06/29/2007 Domo Martinez [facility] History of tobacco use TOBACCO OFFERED [facility] 2007 [facility] History of tobacco use CURRENT TOBACCO USER 03/15/2005 [facility] History of tobacco use CURRENT NON-TOBACCO USER-HX OF USE 09/04/2004 [facility] History of tobacco use CURRENT TOBACCO USER 10/01/2002 [facility] History of tobacco use CURRENT TOBACCO USER 04/16/2002 [facility] History of tobacco use CURRENT TOBACCO USER 10/30/2001 [facility] History of tobacco use CURRENT TOBACCO USER 11/21/2000 [facility] History of tobacco use CURRENT TOBACCO USER 11/02/2000 [facility] Plan of Care List of future care activities from [facility] facilities. Additional future care activities may be listed in the Assessment and Plan section. Date/Time Care Activity Care Activity Detail Facili ty 09/28/2024 AMBULATORY - MEDICINE AMBULATORY - MEDICI NE [facility] Advance Directives List of completed, amended, or rescinded Advance Directives on record at [facility] facilities. An actual copy of the Directive is not included. Date Advance Directive Provider Source 06/18/2010 ADVANCE DIRECTIVE DISCUSSION JAIR MORRIS [facility]
--- OUTSIDE RECORDS SUMMARY | 2024-09-28 11:26 | XMS_ITS | Encounter Summary ---
Author Organization [facility] Address [address] [place] [address] Care Team Providers Care Pharmacovigilance Specialist Name Role Phone Non-Staff, Physician Primary Care Provider Unava ilable Reason for Referral * MRI (Routine) - Closed Specialty Diagnoses / Procedures Referred By Contedilma t Referred To Contact Radiology Diagnoses Cervicalgia Procedures MRI CERVICAL WO CONTRAST Venancio Plunkett MD Phone: tel: fax: [facility] [place] [address] [place] [address] Phone: tel: fax: Referral ID Status Reason Start Date Expiration Date V isits Requested Visits Authorized [id number] Closed [facility] View CTS to Schedule (SGF) 11/10/2018 12/11/2019 1 1 Encounter Details Date Type Department Care Team ([facility] st Contact Info) Description 11/10/2018 Ancillary Orders [facility] Centralized Scheduling [address] [facility] [address] [place] [id number] Venancio Plunkett MD [address] [place] [phone] Cervicalgia Social History Tobacco Use Types Packs/Day Years Used Date Smoking Tobacco: Every Day Cigarettes Alcohol Use Standard Drinks/Week Comments No 0 (1 standard drink = 0.6 oz pur e alcohol) Sex and Gender Information Value Date Recorded Sex Assigned at Not on file Legal Sex Male 11:06 AM [employer] Gender Identity Not on file Sexual Orientation Not on file documented as of this encounter Plan of Treatment Not on file documented as of this encounter Results * MRI CERVICAL WO CONTRAST (11/15/2018 2:20 PM CDT) Anatomical Region Laterality Modality Spine Magnetic Resonan ce 11/15/2018 2:33 PM CDT Impressions 11/15/2018 4:24 PM CDT IMPRESSION: Please see below. Exam: MRI CERVICAL WO CONTRAST Date/Time of Exam: 11/15/2018 2:20 PM Reason For Exam: See Diagnosis. Diagnosis: Cervicalgia. Technique: Multiplanar, multisequence MR images were obtained through the cervical spine without contrast. Comparison: None FINDINGS: Cervical alignment shows a straightened lordosis. Mild to moderate disc degeneration and spondylosis. Marrow signal normal. No high-grade central canal stenosis. Cervical cord signal normal. Axial images are motion limited. CT three, findings appear normal. C3-4, right foraminal spondylophyte and uncovertebral hypertrophy with facet arthropathy result in moderate to severe right-sided neuroforaminal narrowing. C4-5, mild spondylotic disc bulging and mild facet arthropathy result in mild to moderate bilateral neuroforaminal narrowing. C5-6, mild annular bulging without stenosis. C6-7, mild to moderate annular bulging with mild bilateral neuroforaminal narrowing. C7-T1, facet arthropathy but no stenosis. IMPRESSION: [id number]-nv-[id number] cervical disc degeneration with straightened lordosis. No significant central canal stenosis. Moderate to severe right-sided neuroforaminal narrowing C3-4. Mild to moderate bilateral neuroforaminal C4-5. Narrative Procedure Note Alexis Diaz DO - 11/15/2018 IMPRESSION: Please see below. Exam: MRI CERVICAL WO CONTRAST Date/Time of Exam: 11/15/2018 2:20 PM Reason For Exam: See Diagnosis. Diagnosis: Cervicalgia. Technique: Multiplanar, multisequence MR images were obtained through the cervical spine without contrast. Comparison: None FINDINGS: Cervical alignment shows a straightened lordosis. Mild to moderate disc degeneration and spondylosis. Marrow signal normal. No high-grade central canal stenosis. Cervical cord signal normal. Axial images are motion limited. CT three, findings appear normal. C3-4, right foraminal spondylophyte and uncovertebral hypertrophy with facet arthropathy result in moderate to severe right-sided neuroforaminal narrowing. C4-5, mild spondylotic disc bulging and mild facet arthropathy result in mild to moderate bilateral neuroforaminal narrowing. C5-6, mild annular bulging without stenosis. C6-7, mild to moderate annular bulging with mild bilateral neuroforaminal narrowing. C7-T1, facet arthropathy but no stenosis. IMPRESSION: Ewlx-bz-tdvdnsal cervical disc degeneration with straightened lordosis. No significant central canal stenosis. Moderate to severe right-sided neuroforaminal narrowing C3-4. Mild to moderate bilateral neuroforaminal C4-5. Venancio Plunkett MD MR ORDERABLES Final Result documented in this encounter Visit Diagnoses Diagnosis Cervicalgia Cervicalgia documented in this encounter Care Teams Pharmacovigilance Specialist Relationship Specialty Start Date End Date Non-Staff, Physician NO ADDRESS ON FILE PCP - General 09/17/09 documented as of this encounter
--- OUTSIDE RECORDS SUMMARY | 2024-09-28 11:26 | XMS_ITS | Patient Health Record ---
Author Organization [facility] Address [address] [place] [address] Care Team Providers Care Director Independent Name Role Phone [facility] Venancio ARGUELLES Primary Care Provider Un available Zee Reynoso Unavailable [phone] [place], Doran Unavailable Unavailable Luda Gee Unavailable [phone] Reason For Referral Reason Ulcerative Colitis Referring Provider First Name [place] [facility] Referring Provider Last Name ND Referring Provider [facility] Referred Organization [facility] Referred Provider Luda Gee Referred Address [address] [facility] [place],[address],[place] Referred Provider Specialty Gastroentero logy Referral Priority Routine Plan Of Treatment No Information Insurance Providers Payer Name Payer Address Payer Phone Subscriber Number Group Number Insured Name Patient Relationship to Insured Coverage Start Date Coverage End Date [employer] [address] [place] [phone] Get SS# [id number] Mancini Self - patient is the insured
--- OUTSIDE RECORDS SUMMARY | 2024-09-28 11:26 | XMS_ITS | Clinical Summary ---
Author Organization [facility] Address [address] [place] [address] Care Team Providers Care Glassblower Name Role Phone Non-Staff, Physician Primary Care Provider Unava ilable Allergies Active Allergy Reactions Criticality Noted Date Comments Nalbuphine Nausea and Vomiting Low 09/17/2009 Pentazocine Lactate Hallucination Low 09/17/2009 Medications No known medications Active Problems Problem Noted Date Diagnosed Date Ruptured extensor tendon of hand or wrist 2009 Social History Tobacco Use Types Packs/Day Years Used Date Smoking Tobacco: Every Day Cigarettes Alcohol Use Standard Drinks/Week Comments No 0 (1 standard drink = 0.6 oz pur e alcohol) Sex and Gender Information Value Date Recorded Sex Assigned at Not on file 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 Gender Identity Not on file Sexual Orientation Not on file Last Filed Vital Signs Vital Sign Reading Time Taken Comments Blood Pressure 144/91 09/17/2009 3:30 PM CDT Pulse 75 09/17/2009 3:30 PM CDT Temperature 36.4 C (97.6 F) 09/17/2009 2:34 PM CDT Respiratory Rate 16 09/17/2009 3:30 PM CDT Oxygen Saturation 95% 09/17/2009 3:30 PM CDT Inhaled Oxygen Concentration - - Weight 89.8 kg (198 lb) 09/17/2009 11:22 AM CDT Height 188 cm (6' 2 ) 09/17/2009 11:22 AM CDT Body Mass Index 25.42 09/17/2009 11:22 AM CDT Plan of Treatment Health Maintenance Due Date Last Done Comments DTAP/TDAP/TD VACCINES (1 - Tdap) 06/07/1970 PNEUMOCOCCAL VACCINE 50+ YEARS (1 of 2 - PCV) 06/07/18 71 COLORECTAL SCREENING 06/07/1996 Colorectal Cancer Screening 06/07/1996 FIT-DNA Q 3 years 06/07/1996 FIT/FOBT Q 1 year 06/07/1996 Flex Sig/CT Colonography Q 5 years 06/07/1996 ZOSTER VACCINE (1 of 2) 06/07/2001 INFLUENZA VACCINE (#1) 2024 RSV VACCINE (60+ or ) (1 - 1-dose 75+ series) 06/07/2026 Insurance [facility] 16 CONSOLIDATED FEE UNIT Advance Directives For more information, please contact: [phone] * Full Code (Latest Code Status on File) Date Activated Date Inactivated Comments 09/17/2009 11:49 AM 09/18/2009 2:32 AM * Full Code Date Activated Date Inactivated Comments 09/17/2009 11:21 AM 09/17/2009 11:49 AM Care Teams Glassblower Relationship Specialty Start Date End Date Non-Staff, Physician NO ADDRESS ON FILE PCP - General 09/17/09
--- OUTSIDE RECORDS SUMMARY | 2024-09-28 11:26 | XMS_ITS | Clinical Summary ---
Author Organization [facility] Address [address] [facility] Attn: Epic Prelude ADT [place]INA [id number] Care Team Providers Care Mandrel Puller Name Role Phone Non-Staff, Physician Primary Care Provider Unava ilable Allergies Active Allergy Reactions Criticality Noted Date Comments Nalbuphine Nausea and Vomiting Low 09/17/2009 Pentazocine Lactate Hallucination Low 09/17/2009 Medications metoprolol tartrate (LOPRESSOR) 100 mg tablet Take 100 mg by mouth 2 times daily. Active amLODIPine (NORVASC) 10 mg tablet Take 10 mg by mouth daily. Active ketorolac tromethamine (TORADOL) 10 mg tablet Take 1 Tablet (10 mg) by mouth every 6 hours as needed for Pain. 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 Gender Identity Not on file Sexual Orientation Not on file Last Filed Vital Signs Vital Sign Reading Time Taken Comments Blood Pressure 144/98 10/21/2020 4:[address] Leyva aware of blood pressure and is ok for discharge Pulse - - Temperature 36.9 C (98.4 F) 10/21/2020 4:17 PM CDT Respiratory Rate 20 10/21/2020 4:17 PM CDT Oxygen Saturation 98% 10/21/2020 4:1 7 PM CDT Inhaled Oxygen Concentration - - Weight 80.5 kg (177 lb 6.4 oz) 10/21/2020 2:16 PM CDT Height 190.5 cm (6' 3 ) 10/21/2020 2:16 PM CDT Body Mass Index 22.17 10/21/2020 2:16 PM CDT Plan of Treatment Health Maintenance Due [...] ) (1 - 1-dose 75+ series) 06/07/2026 Care Teams Mandrel Puller Relationship Specialty Start Date End Date Non-Staff, Physician NO ADDRESS ON FILE PCP - General 09/17/09
[2024-09-28 11:59] VITALS: BP 122/85; PULSE 65; RESP 16; TEMP 36.4; O2SAT 95
--- NOTE | 2024-09-28 11:59 | PC.NURSE ---
called for patient numerous times at 1154 with no answer. patient was in WR, found at 1155
--- NOTE | 2024-09-28 12:23 | XR_ITS ---
WS: [id number] Left wrist, AP and lateral views, 09/28/2024 Clinical Data: pain swelling Comparison: None. Findings: No fractures or dislocations are seen. The carpal bones are intact. There is no soft tissue swelling. The distal radius and ulna are not remarkable. There is triradiate cartilage calcification. There is calcification between the radius and scaphoid. There is cystic change in the capitate. XR/XR wrist LT 2V [id number] Impression: Calcifications in the radiocarpal articulation and triradiate cartilage.
--- NOTE | 2024-09-28 13:35 | CT_ITS ---
WS: [id number] CT LEFT WRIST, NONCONTRAST HISTORY: swelling erythema warmth, radial nerve palsy Technique: All CT scans at [facility] use at least one of these dose optimization techniques: automated exposure control; mA and/or kV adjustment per patient size (includes targeted exams where dose is matched to clinical indication); or iterative reconstruction. DLP: 128.98 mGy.cm COMPARISON: Radiograph 09/28/2024 Negative ulnar variance. Ulna is measuring 5 mm shorter than the radius. Subchondral cystic changes are noted in the distal ulna. Mild narrowing of the radiocarpal joint. Extensive calcifications are noted in the radiocarpal and midcarpal compartments. Consistent with chondrocalcinosis. Mild widening of the scapholunate interval to 7.3 mm with calcific deposits. Cystic changes in the navicular, base of the first metacarpal and capitate. Additional soft tissue edema surrounding the wrist. No fractures. CT/CT wrist LT wo con* [id number] IMPRESSION: 1. No acute fracture. 2. Negative ulnar variance. 3. Numerous soft tissue deposits in the radiocarpal and midcarpal joints. This can be noted with hydroxyapatite disease, hyperparathyroidism, gout, diabetes and renal failure. 4. Widening of the scapholunate interval. Highly suspicious for scapholunate i nterval tear. 5. Subchondral cysts in the distal ulna, navicular and lunate and base of the first metacarpal.
[2024-09-28 14:25] LABS: Alanine Aminotransferase 19 U/L (0-41); Albumin Level 4.1 g/dL (3.5-5.2); Alkaline Phosphatase 68 U/L (40-130); Anion Gap 20.7 (5-19); Aspartate Amino Transferase 26 U/L (0-40); Blood Urea Nitrogen 22 mg/dL (8-23); Calcium 9.3 mg/dL (8.5-10.5); Carbon Dioxide 20 mmol/L (22-29); Chloride 98 mmol/L (98-107); Globulin 4.4 g/dL (1.3-4.6); Glucose 92 mg/dL (65-115); Osmolality Calculated 281 mOsm/kg (285-295); Potassium 4.7 mmol/L (3.5-5.1); Sodium 134 mmol/L (136-145); Total Protein 8.5 g/dL (6.6-8.7)
[2024-09-28 14:39] LABS: Hematocrit 46.5 % (37-53); Hemoglobin 15.70 g/dL (11.27-16.99); Mean Corpuscular HGB Conc 33.8 g/dL (30-55); Mean Corpuscular Hemoglobin 32.2 pg (27-33); Mean Corpuscular Volume 95.5 fl (82-101); Nucleated Red Blood Cells % 0 %; Platelet Count 280 10^3/cmm (157-399); Red Blood Count 4.87 10^6/uL (3.85-5.65); White Blood Count 8.92 10^3/uL (3.29-11.43)
--- NOTE | 2024-09-28 14:42 | W.ED.EXTPRO ---
HPI - Extremity Problem General: Chief complaint: Extremity Injury, Upper Stated complaint: swollen lt wrist Time Seen by Provider: 09/28/24 12:07 History of Present Illness: Patient is a 74-year-old [id number] male that presents to the emergency department with left wrist and hand pain. Onset of symptoms approximately 4 days ago. Pain is progressively worsened as has the swelling and redness. He has a limited range of motion of the wrist secondary to pain. He has soft tissue injury to the dorsal aspect of the wrist. Related Data Home Medications ?Medication ?Instructions ?Recorded ?Confirmed amlodipine 10 mg tablet 10 mg PO DAILY 06/29/19 11/05/20 metoprolol tartrate 100 mg tablet 100 mg PO BID 06/29/19 11/05/20 Previous Rx's ?Medication ?Instructions ?Recorded celecoxib 50 mg capsule (Celebrex) 50 mg PO BID #14 caps 09/28/24 ondansetron 4 mg disintegrating 4 mg PO Q8H PRN nausea and 09/28/24 tablet vomiting 5 days #20 tabs pantoprazole 40 mg tablet,delayed 40 mg PO DAILY 30 days #30 tabs 09/28/24 release (Protonix) Allergies Allergy/AdvReac Type Severity Reaction Status Date / Time amoxicillin (From Amoxil) Allergy Unknown Unknown Verified 11/05/20 12:29 cyclobenzaprine (From Allergy Unknown Unknown Verified 11/05/20 12:29 Flexeril) salsalate Allergy Unknown UNKNOWN Verified 11/05/20 12:29 Review of Systems General: Reports: 10 or more systems reviewed and unremarkable except in HPI and below Narrative: Wrist pain, swelling, redness, warmth PFSH ED PFSH: Medical History (Updated 09/28/24 @ 16:37 by Alysia Morgan [facility]) Flat foot Degenerative arthritis of spine Renal cysts, acquired, bilateral Kidney stones Abnormal liver function Depressive disorder Essential (primary) hypertension Lumbago Myalgia and myositis Malaise and fatigue Tick borne fever Contact with or exposure to other viral diseases Surgical History H/O knee surgery History of surgery on arm Family History Mother Diabetes Enlarged heart Social History Smoking and tobacco/nicotine status: current every day tobacco/nicotine user Quit status (tobacco/nicotine): considering quitting Alcohol intake: never Substance/Drug Use: never Physical Exam Const: COMMON NORMALS: no acute distress, patient oriented x3 and alert GENERAL APPEARANCE: cooperative ORIENTATION/CONSCIOUSNESS: Yes awake, Yes oriented to person, Yes oriented to place and Yes oriented to time Neck/C-Spine: COMMON NORMALS: full ROM GENERAL: Yes normal visual inspection Resp: COMMON NORMALS: normal respiratory effort, No retractions and No use of accessory muscles EFFORT & INSPECTION: Yes able to speak in complete sentences and Yes symmetric chest movement Cardio: COMMON NORMALS: regular rate and Peripheral pulses 2+ throughout RATE: regular rate PERIPHERAL PULSES: Peripheral pulses 2+ throughout Extremity: COMMON NORMALS: normal to inspection NARRATIVE EXTREMITY EXAM: Left upper extremity: Skin is clean and dry. There is erythema from the distal third of the forearm into the hand, swelling is associated and warmth. Patient has limited wrist extension and flexion due to pain. Patient has difficulty extending his thumb He can flex and extend his DIP joint of the index finger Is able to cross his fingers abduct fingers and can make a fist although very difficult to do so because of pain and swelling. His compartments are compressible. You can wrinkle his skin. Sensations intact throughout He is tender over the wrist GENERAL: Yes normal exam except as noted Neuro: COMMON NORMALS: patient oriented x3 SENSORIUM/ORIENTATION: Yes alert, Yes oriented to person, Yes oriented to place and Yes oriented to time CRANIAL NERVES: Yes CN normal except as noted Psych: COMMON NORMALS: mental status grossly normal, Normal thought process present, cooperative, activity/motor behavior normal, denies homicidal ideation and denies suicidal ideation THOUGHT PROCESS: Normal thought process present Skin: COMMON NORMALS: no rashes or lesions noted, no wounds and turgor normal GENERAL SKIN EXAM: no rashes or lesions noted and turgor normal Course Vital Signs: Vital signs: Vital Signs Temperature 97.5 F L 09/28/24 11:59 Pulse Rate 65 09/28/24 11:59 Respiratory Rate 16 09/28/24 11:59 Blood Pressure 122/85 09/28/24 11:59 Pulse Oximetry 95 09/28/24 11:59 Oxygen Delivery Me thod Room Air 09/28/24 11:59 MDM - Extremity (Nontraumatic) Medical Decision Making Patient was evaluated in the emergency department today for extremity swelling, redness, warmth, pain. He underwent an evaluation including an x-ray of the left wrist. Imaging is negative for fracture or dislocation. We did obtain a CT of the wrist without contrast to assess soft tissue infection. Patient has extensive swelling as well as numerous soft tissue deposits in the radiocarpal and midcarpal joints that is a usually associated with hydroxyapatite disease, hyperparathyroidism, gout, diabetes, renal failure. He has no white count He does have elevated CRP and ESR. We have a uric acid pending. I have given him Toradol here in the emergency department and reviewed his case with Dr. Martini. We are going to treat him for gout. I am concerned that the differential could include cellulitis due to the extensive nature of the redness and swelling. When I have her monitor her symptoms very closely and if symptoms worsen then he needs prompt reevaluation. Lab Data 09/28/24 13:59 09/28/24 13:59 Radiology Impressions Wrist X-Ray 09/28/24 12:23 Impression: Calcifications in the radiocarpal articulation and triradiate cartilage. Wrist CT 09/28/24 13:35 IMPRESSION: 1. No acute fracture. 2. Negative ulnar variance. 3. Numerous soft tissue deposits in the radiocarpal and midcarpal joints. This can be noted with hydroxyapatite disease, hyperparathyroidism, gout, diabetes and renal failure. 4. Widening of the scapholunate interval. Highly suspicious for scapholunate interval tear. 5. Subchondral cysts in the distal ulna, navicular and lunate and base of the first metacarpal. Laboratory Results WBC 8.92 10^3/uL (3.29-11.43) 09/28/24 13:59 RBC 4.87 10^6/uL (3.85-5.65) 09/28/24 13:59 Hgb 15.70 g/dL (11.27-16.99) 09/28/24 13:59 Hct 46.5 % (37-53) 09/28/24 13:59 MCV 95.5 fl (82-101) 09/28/24 13:59 MCH 32.2 pg (27-33) 09/28/24 13:59 MCHC 33.8 g/dL (30-55) 09/28/24 13:59 RDW 13.2 % (12.1-15.1) 09/28/24 13:59 Plt Count 280 10^3/cmm (157-399) 09/28/24 13:59 MPV 9.9 fL (7.4-10.4) 09/28/24 13:59 Neut % (Auto) 73.6 % 09/28/24 13:59 Lymph % (Auto) 16.6 % 09/28/24 13:59 Hunt % (Auto) 8.0 % 09/28/24 13:59 Eos % (Auto) 0.4 % 09/28/24 13:59 Baso % (Auto) 0.7 % 09/28/24 13:59 Neut # (Auto) 6.57 10^3/uL (1.8-7.7) 09/28/24 13:59 Lymph # (Auto) 1.5 10^3/uL (0.8-4.8) 09/28/24 13:59 Hunt # (Auto) 0.7 10^3/uL (0.2-0.9) 09/28/24 13:59 Eos # (Auto) 0.0 10^3/uL (0.0-0.8) 09/28/24 13:59 Baso # (Auto) 0.1 10^3/uL (0.0-0.1) 09/28/24 13:59 Nucleated RBC % (auto) 0 % 09/28/24 13:59 Nucleated RBCs # 0.0 /100WBC 09/28/24 13:59 ESR 30 mm/hr (0-10) H 09/28/24 13:59 Sodium 134 mmol/L (136-145) L 09/28/24 13:59 Potassium 4.7 mmol/L (3.5-5.1) 09/28/24 13:59 Chloride 98 mmol/L (98-107) 09/28/24 13:59 Carbon Dioxide 20 mmol/L (22-29) L 09/28/24 13:59 Anion Gap 20.7 (5-19) H 09/28/24 13:59 BUN 22 mg/dL (8-23) 09/28/24 13:59 Creatinine 1.1 mg/dL (0.7-1.2) 09/28/24 13:59 GFR Calculation Not Reportable 09/28/24 13:59 Glucose 92 mg/dL (65-115) 09/28/24 13:59 Calculated Osmolality 281 mOsm/kg (285-295) L 09/28/24 13:59 Calcium 9.3 mg/dL (8.5-10.5) 09/28/24 13:59 Total Bilirubin 0.8 mg/dL (0.15-1.2) 09/28/24 13:59 AST 26 U/L (0-40) 09/28/24 13:59 ALT 19 U/L (0-41) 09/28/24 13:59 Alkaline Phosphatase 68 U/L (40-130) 09/28/24 13:59 C-Reactive Protein 45.9 mg/L (0.0-4.9) H 09/28/24 13:59 Total Protein 8.5 g/dL (6.6-8.7) 09/28/24 13:59 Albumin 4.1 g/dL (3.5-5.2) 09/28/24 13:59 Globulin 4.4 g/dL (1.3-4.6) 09/28/24 13:59 All radiology interpretation(s) finalized by discharge Discharge Plan Discharge Patient Disposition: Home Clinical Impression: Gout Condition: Stable Prescriptions: New celecoxib [Celebrex] 50 mg capsule 50 mg PO BID Qty: 14 0RF pantoprazole [Protonix] 40 mg tablet,delayed release (DR/EC) 40 mg PO DAILY 30 Days Qty: 30 0RF ondansetron 4 mg tablet,disintegrating 4 mg PO Q8H PRN (Reason: nausea and vomiting) 5 Days Qty: 20 0RF No Action amlodipine 10 mg tablet 10 mg PO DAILY metoprolol tartrate 100 mg tablet 100 mg PO BID Discharge Orders: Discharge ED (Routine); Ordered 09/28/24 Ordered By: Alysia Morgan Referrals: Venancio Plunkett DO [Primary Care Provider, Emergency Medicine] Corey Martini DO [Physician, Orthopedics] Discharge Diet: Advance as tolerated Discharge Activity: Resume usual activity Patient Instructions: Low Purine Diet (ED), Gout (ED), Pain Management, Patient Portal & Khadijah Instructions Activity Restrictions/Additional Instructions: Please take the Celebrex along with the Protonix to help with inflammation. Please return to the emergency department for new concerning or worsening symptoms. Monitor closely for signs of infection. If you feel your symptoms are getting worse then you need to return to the emergency department. Please follow-up with Dr. Martini for ongoing wrist pain. Print Language: Barbadian Coding Level of Care Code ED Pack Puller for Devin Bolton
[2024-09-28] MEDS: methylPREDNISolone (DEPO) 80 MG/ML INJ 1 mL IM (16:58)
[2024-09-28 17:21] LABS: Uric Acid 5.7 mg/dL (3.4-7.0)
== END 2024-09-28 17:11 | disposition home or self-care (01) ==
PROVIDERS: Emergency Provider Nurse Practitioner; PCP Emergency Medicine Emergency Medical Services
DX: M10.032 Idiopathic gout, left wrist (principal); Z72.0 Tobacco use
CPT/HCPCS: 36415; 73100; 73200; 80053; 84550; 85025; 85651; 86140; 96372; 96374; 99285; J1010; J1885